=== PATIENT | male | born 1945 | race Caucasian/White ===

== ENCOUNTER 2025-06-30 14:24 | Inpatient (IN) | payer MEDICARE, SELFPAY ==
[2025-06-30] VITALS (7 sets, daily range): BP systolic 122–146; BP diastolic 58–73; PULSE 65–81; RESP 14–24; TEMP 36.9–38.8; O2SAT 95–100; BMI 26.3; BMI 25.7
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
--- NOTE | 2025-06-30 15:10 | RAD_ITS ---
PROCEDURE: SHOULDER MIN 2 VIEWS 06/30/2025 REASON FOR EXAM: PAIN/INJURY TECHNIQUE: SHOULDER MIN 2 VIEWS Laterality: Right shoulder COMPARISON: None FINDINGS: Bones: No fracture. 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 Decreased distance between the humeral head in the acromion in keeping with a rotator cuff pathology. There is widening of the right acromioclavicular joint. Soft tissues: Unremarkable Other: RAD/Shoulder min 2 Views IMPRESSION: Degenerative changes of the right shoulder as well as evidence of rotator cuff disease. Widening of the right acromioclavicular joint. Reading Location: [facility]
--- NOTE | 2025-06-30 15:20 | RAD_ITS ---
PROCEDURE: CHEST PA AND LATERAL 06/30/2025 REASON FOR EXAM: WEAKNESS, SUBACUTE CHEST TRAUMA TECHNIQUE: CHEST PA AND LATERAL COMPARISON: None FINDINGS: Hardware: EKG electrodes are seen. Heart: Heart is nonenlarged. Mediastinum: The mediastinal contour is unremarkable. Lungs: Lungs are clear. Bones: Findings suggestive of healed right 8th rib fracture. Degenerative changes of the thoracic spine. RAD/Chest PA and Lateral IMPRESSION: NO ACUTE FINDINGS. Reading Location: [id number]
[2025-06-30 15:30] LABS: Hematocrit 35.1 % (40-54); Hemoglobin 13.1 g/dL (13.0-16.5); Immature Granulocytes Count 0.050 X10^3/uL (0.0-0.0); Mean Corp Hgb Conc 37.3 g/dL (32-36); Mean Corpuscular Volume 85.8 fL (80-94); Mean Platelet Vol. 10.7 fl (6.2-12.0); NRBC Flagged by Analyzer 0 % (0-5); Platelet Count 222 K/mm3 (150-450); RBC Distribution Width CV 12.3 % (11.6-14.6); RBC Distribution Width SD 38.1 fl (35.1-43.9); Red Blood Count 4.09 M/mm3 (4.6-6.2); White Blood Count 11.4 K/mm3 (4.4-11.0)
[2025-06-30 15:46] LABS: AST(SGOT) 23 U/L (<=37); Alanine Aminotransfer ALT/SGPT 25 U/L (<=46); Albumin, Serum 4.0 g/dL (3.4-4.8); Alkaline Phosphatase 48 U/L (40-129); Anion Gap 12 (5-15); BUN 25 mg/dL (4-19); BUN/Creat Ratio 17.9 RATIO (10-20); Calcium,Total 8.4 mg/dL (7.6-11.0); Carbon Dioxide 26.7 mmol/L (21.0-32.0); Chloride 90 mmol/L (98-108); Estimated Creatinine Clearance 47.06 ml/min (50-250); Globulin 1.8 g/dL (2.2-4.2); Glucose 127 mg/dL (70-99); Potassium 3.1 mmol/L (3.3-5.1)
[2025-06-30 16:10] LABS: Alcohol, Blood (Medical)-Serum < 10.1 mg/dL (<=10.0)
[2025-06-30 16:10] LABS: Troponin T High Sensitivity 70 ng/L (<=22)
--- NOTE | 2025-06-30 16:10 | ED.RN ---
DR TOLLIVER NOTIFIED OF TROP OF 72
[2025-06-30 16:46] LABS: Mucous, Urine 0 SEEN /hpf (<or=2+)
[2025-06-30 17:44] LABS: Troponin T High Sens 2 HR 62 ng/L (<=22)
[2025-06-30 17:50] LABS: Barbiturate Urine NEGATIVE (< 200 ng/mL); Benzodiazepine Urine NEGATIVE (< 200 ng/mL); PCP Urine NEGATIVE (< 25 ng/mL); THC Urine PRESUMPTIVE POSITIVE (< 50 ng/mL)
[2025-06-30 17:57] LABS: Color, Urine Yellow (Yellow); Glucose, Dipstick Normal (Normal); Ketone-Dipstick Negative (Negative); Leukocyte Esterase-Dipstick Negative /ul (Negative); Nitrite-Dipstick Negative (Negative); Occult Blood-Urine 10 /ul (Negative); Protein-Dipstick 30 mg/dl (Negative); Specific Gravity, Urine 1.015 (1.002-1.030); Urine Bilirubin Dipstick Negative (Negative)
[2025-06-30 18:24] LABS: Red Blood Cells-Urine 0-5 SEEN /hpf (0-5); Squamous Epithelial Cells - UA 0-5 SEEN /hpf (0-5); Transitional Epithelial - Ur 0-5 SEEN /hpf (0-5)
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
--- NOTE | 2025-06-30 20:56 | CM.ED ---
Social Work SW met with patient and patients sons. Patient was not communicative, sons were able to answer questions. Sons stated that patient was staying with son Saud while in [place]. Patient was supposed to drive back to [place] on . Saud states they use [facility] in [place] for prescriptions. Son has no DME in his home. Discharge plans uncertain. Juli Johnson, BULLET LUBRICATING MACHINE OPERATOR, RACE RELATIONS PROFESSOR
[2025-06-30 21:16] LABS: Troponin T High Sens 4 HR 63 ng/L (<=22)
[2025-06-30 21:26] LABS: Magnesium 2.1 mg/dL (1.5-2.2)
--- NOTE | 2025-06-30 21:52 | CDU_ITS ---
Reason For Study Reason For Study: CVA Rt. Velocities/BP Lt. Velocities/BP Prox CCA 88.8/12.6 cm/sec. Prox CCA 87.6/10.2 cm/sec. Mid CCA 81.4/12.6 cm/sec. Mid CCA 79.0/12.6 cm/sec. Dist CCA 72.8/11.4 cm/sec. Dist CCA 74.0/11.4 cm/sec. Prox ICA 50.4/10.7 cm/sec. Prox ICA 38.1/6.9 cm/sec. Mid ICA 64.5/17.3 cm/sec. Mid ICA 61.7/16.3 cm/sec. Dist ICA 75.9/23.0 cm/sec. Dist ICA 58.1/12.3 cm/sec. Rt. ICA/CCA = 0.9. Lt. ICA/CCA = 0.8. Prox ECA 60.5/5.3 cm/sec. Prox ECA 74.0/5.3 cm/sec. Rt. Vert. 57.0/12.6 cm/sec. Lt. Vert. 41.2/8.3 cm/sec. Right Extracranial There is homogeneous, smooth atherosclerotic plaque noted in the right common carotid artery. There is intimal thickening but no significant atherosclerotic plaque noted in the right internal carotid artery. There is intimal thickening but no significant atherosclerotic plaque noted in the right external carotid artery. Antegrade flow is noted in the right vertebral artery. Left Extracranial There is homogeneous, smooth atherosclerotic plaque noted in the left common carotid artery. There is intimal thickening but no significant atherosclerotic plaque noted in the left internal carotid artery. There is intimal thickening but no significant atherosclerotic plaque noted in the left external carotid artery. Antegrade flow is noted in the left vertebral artery. Procedure Carotid Duplex 21674. This is a Carotid Duplex examination using B-mode, color flow and specral Doppler. Exam performed portable in patient room. VL/Carotid Duplex Ultrasound Interpretation Summary No significant atherosclerotic plaque or stenosis noted in the internal carotid arteries bilaterally. Flow within the vertebral arteries is antegrade bilaterally. Ordering Physician: Shauna Simental Performed By: Honey Rodriguez RVT
[2025-06-30 22:05] LABS: Procalcitonin 0.10 ng/mL (<=0.10)
--- OUTSIDE RECORDS SUMMARY | 2025-06-30 22:24 | XMS RPT_ITS | CCD ---
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 Ball Emergency Provider Care Physician, No Primary Primary Care Provider Unavailable Hola SHEA, Dr. Shauna Frank Admit Provider Hola SHEA, Dr. Shauna Frank Attending Provider Allergies Allergy Classification Reported Allergen(s) Allergy Type Date of Onset Reaction(s) Facility (1 source) Penicillins Allergy to substance 5 chest pain, sob [facility] Medications Current Medications Medication Drug Class(es) Dates Sig (Normalized) Sig (Original) aspirin 81 mg delayed release oral tablet (1 source) Platelet Aggregation Inhibitor, Nonsteroidal Anti-inflammator y Drug Start: 0 Aspirin (Adult Low Dose Aspirin) 81 mg tablet,delayed release (DR/EC) Active 81 mg PO daily 90 April 01, 2020 12:00am 24 hr dilTIAZem hydrochloride 240 mg extended release oral capsule (6 sources) Calcium Channel Veronica Start: 8 End: 1 take 1 capsule by mouth once daily Diltiazem Hcl 240 mg capsule,extended release 24 hr Active 0 .ROUTE .COMPLEX 90 November 22, 2020 11:31am take 1 capsule by mouth once daily hydroCHLOROthiazide 25 mg oral tablet (2 sources) Thiazide Diuretic Start: 5 take 1 tablet by mouth once daily Hydrochlorothiazide 25 mg tablet Active 25 mg PO DAILY June 30, 2025 12:00am Start: 12-15-2019 End: 04-01-2020 take 1 tablet by mouth once daily Hydrochlorothiazide 12.5 mg tablet Discontinued 12.5 mg PO DAILY 90 December 15, 2019 1:00am April 01, 2020 1:27pm combination Losartan HCTZ on backorder losartan potassium 50 mg oral tablet (2 sources) Angiotensin 2 Receptor Veronica Start: 06-30-2025 take 1 tablet by mouth at bedtime Losartan 50 mg tablet Active 50 mg PO AT BEDTIME June 30, 2025 12:00am Start: 12-15-2019 End: 04-01-2020 take 1 tablet by mouth once daily Losartan 50 mg tablet Discontinued 50 mg PO DAILY 90 December 15, 2019 1:00am April 01, 2020 1:27pm combination Losartan HCTZ on backorder tamsulosin hydrochloride 0.4 mg oral capsule (1 source) alpha-Adrenergic Veronica Start: 06-30-2025 take 1 capsule by mouth once daily Tamsulosin 0.4 mg capsule Active 0.4 mg PO DAILY June 30, 2025 12:00am ubidecarenone 100 mg oral capsule (1 source) Start: 06-30-2025 Coenzyme Q10 (Coq-10) 100 mg capsule Active 100 mg PO DAILY June 30, 2025 12:00am Vitamin D3-Vitamin K2 (Mk4) (K2 Plus D3) 1,000-100 unit-mcg tablet (1 source) Start: 06-30-2025 Vitamin D3-Vitamin K2 (Mk4) (K2 Plus D3) 1,000-100 unit-mcg tablet Active 1 {tbl} PO DAILY June 30, 2025 12:00am Completed/Discontinued Medications Medication Drug Class(es) Dates Sig (Normalized) Sig (Original) clopidogrel 75 mg oral tablet (3 sources) P2Y12 Platelet Inhibitor Start: 03-06-2018 End: 04-01-2020 Clopidogrel (Plavix) 75 mg tablet Discontinued 75 mg PO .COMPLEX 36 3 June 11, 2019 4:01pm April 01, 2020 1:24pm 75 mg PO ; three days a week hydroCHLOROthiazide 12.5 mg / losartan potassium 50 mg oral tablet (3 sources) Thiazide Diuretic, Angiotensin 2 Receptor Veronica Start: 05-30-2018 End: 12-15-2019 Losartan-Hydrochl orothiazide 50-12.5 mg tablet Discontinued 1 {tbl} PO daily 90 June 16, 2019 11:04am December 15, 2019 4:44pm hydroCHLOROthiazide 25 mg / valsartan 320 mg oral tablet (2 sources) Thiazide Diuretic, Angiotensin 2 Receptor Veronica Start: 03-06-2018 End: 05-30-2018 Valsartan-Hydroch lorothiazide (Diovan Hct) 320-25 mg tablet Discontinued 0.5 {tbl} PO daily 45 3 May 27, 2018 9:42am May 30, 2018 2:20pm metoprolol tartrate 25 mg oral tablet (3 sources) beta-Adrenergic Veronica Start: 03-06-2018 End: 04-01-2020 take 1 tablet by mouth once daily Metoprolol Tartrate 25 mg tablet Discontinued 25 mg PO daily 90 3 June 16, 2019 11:04am April 01, 2020 1:24pm Problems Problem Classification Problem Date Documented Da te Episodic/Chronic Acute cerebrovascular disease (2 sources) Cerebral infarction; Translations: [Cerebral infarction, unspecified] 06-30-2025 Chronic Cardiac dysrhythmias (1 source) Paroxysmal atrial fibrillation; Translations: [Paroxysmal atrial fibrillation] 04-01-2019 Chronic Conditions associated with dizziness or vertigo (1 source) Loss of equilibrium; Translations: [Dizziness and giddiness] 06-30-2025 Episodic Essential hypertension (1 source) Essential hypertension; Translations: [Essential (primary) hypertension] 03-31-2020 Chronic Heart valve disorders (1 source) Tricuspid incompetence, non-rheumatic ; Translations: [Nonrheumatic tricuspid (valve) insufficiency] 03-31-2020 Chronic Nonspecific chest pain (1 source) Atypical chest pain; Translations: [Other chest pain] 04-01-2019 Episodic Other nervous system disorders (1 source) Disorder of brain; Translations: [Encephalopathy, unspecified] 06-30-2025 Chronic Residual codes; unclassified (1 source) History of operative procedure on shoulder; Translations: [Other specified postprocedural states] 04-01-2019 Episodic Comment on above: rotator cuff repair Residual codes; unclassified (1 source) Past history of procedure; Translations: [Other specified postprocedural states] 04-01-2019 Episodic Results Test Name Value Interpretation Reference Range Facility Absolute lymphocyte countOrd ered By: Quinn Menjivar on 06-30-2025 Lymphocytes Auto (Unsp spec) [#/Vol] 2.21 10*3/uL 0.83-4.51 [facility] Absolute neutrophil countOrd ered By: Quinn Menjivar on 06-30-2025 Neutrophils (Bld) [#/Vol] 7.9 10*3/uL High 2.0-7.7 [facility] Amphetamine detection with 1 000 ng/mL as cutoffOrdered By: Quinn Menjivar on 06-30-2025 Amphetamines Screen method >1000 ng/mL Ql (U) Negative < 200 ng/mL [facility] Anion gap in Serum or Plasma Ordered By: Quinn Menjivar on 06-30-2025 Anion gap [Moles/Vol] 12 mmol/L 5-15 [facility] Automated lymphocyte count a s percentage of total leukocytesOrdered By: Quinn Menjivar on 06-30-2025 Lymphocytes/100 WBC Auto (Unsp spec) 19.5 % 19- [facility] BUN/creatinine ratioOrdered By: Quinn Menjivar on 06-30-2025 Urea nitrogen/Creatinine [Mass ratio] 17.9 mg/mg 10-20 [facility] Basophil percentageOrdered B y: Quinn Menjivar on 06-30-2025 Basophils/100 WBC (Bld) 0.4 % 0-1 [facility] Bilirubin Test strip Ql (U)O rdered By: Quinn Menjivar on 06-30-2025 Bilirubin Ql (U) Negative Negative [facility] Bilirubin, totalOrdered By: Quinn Menjivar on 06-30-2025 Bilirubin [Mass/Vol] 0.94 mg/dL 0.00-1.30 [facility] Carbon dioxide, total [Moles /volume] in Central venous bloodOrdered By: Quinn Menjivar on 06-30-2025 CO2 [Moles/Vol] 26.7 mmol/L 21.0-32.0 [facility] Chloride assayOrdered By: Litzy Menjivar on 06-30-2025 Chloride [Moles/Vol] 90 mmol/L Low 98-108 [facility] Eosinophil percentageOrdered By: Quinn Menjivar on 06-30-2025 Eosinophils/100 WBC (Bld) 0.3 % 0-5 [facility] Erythrocyte distribution wid th ratioOrdered By: Quinn Menjivar on 06-30-2025 Erythrocyte distribution width (RBC) [Ratio] 12.3 % 11.6-14.6 [facility] Erythrocyte distribution wid th standard deviationOrdered By: Quinn Menjivar on 06-30-2025 Erythrocyte distribution width (RBC) [Ratio] 38.1 fl 35.1-43.9 [facility] Glomerular filtration rate ( GFR) estimation/1.73 sq m using serum, plasma, or whole bOrdered By: Quinn Mejnivar on 06-30-2025 GFR/1.73 sq M.predicted among non-blacks MDRD (S/P/Bld) [Vol rate/Area] 51 mL/min/{1.73_m2} Low >60 [facility] Comment on above: mL/min/1.73m2 CKD-EP I Creatinine Equation (2020) Hematocrit Auto (Bld) [Volum e fraction]Ordered By: Quinn Menjivar on 06-30-2025 Hematocrit (Bld) [Volume fraction] 35.1 % Low 40-54 [facility] Hemoglobin measurementOrdere d By: Quinn Menjivar on 06-30-2025 Hemoglobin (Bld) [Mass/Vol] 13.1 g/dL 13.0-16.5 [facility] Immature granulocytes/100 WB C Auto (Bld)Ordered By: Quinn Menjivar on 06-30-2025 Immature granulocytes/100 WBC (Bld) 0.400 % 0.0-0.9 [facility] Comment on above: IG% - Immature Granu locytes (promyelocytes, myelocytes and metamyelocytes) > 1% indicates that a LEFT SHIFT is Present. Ketones Test strip Ql (U)Ord ered By: Quinn Menjivar on 06-30-2025 Ketones Ql (U) Negative Negative [facility] Laboratory - Chemistry and C hemistry - challengeOrdered By: Quinn Menjivar on 06-30-2025 AST [Catalytic activity/Vol] 23 U/L <38 [facility] MCV (mean corpuscular volume ) determinationOrdered By: Quinn Menjivar on 06-30-2025 MCV (RBC) [Entitic vol] 85.8 fL 80-94 [facility] Magnesium measurement (mass/ volume)Ordered By: Shauna Simental on 06-30-2025 Magnesium (Unsp spec) [Mass/Vol] 2.1 mg/dL 1.5-2.2 [facility] Mean corpuscular hemoglobin (MCH) determinationOrdered By: Qiunn Menjivar on 06-30-2025 MCH (RBC) [Entitic mass] 32.0 pg 27.0-32.0 [facility] Mean corpuscular hemoglobin concentration (MCHC) determinationOrdered By: Quinn Menjivar on 06-30-2025 MCHC (RBC) [Mass/Vol] 37.3 g/dL High 32-36 [facility] Mean platelet volume determi nationOrdered By: Quinn Menjivar on 06-30-2025 Platelet mean volume (Bld) [Entitic vol] 10.7 fL 6.2-12.0 [facility] Microscopic analysis of urin e for red blood cells (RBC)Ordered By: Quinn Menjivar on 06-30-2025 Microscopic analysis of urine for red blood cells (RBC) 0-5 SEEN /hpf 0-5 [facility] Monocyte percentageOrdered B y: Quinn Menjivar on 06-30-2025 Monocytes/100 WBC (Bld) 10.0 % 0-10 [facility] Mucus LM Ql (Urine sed)Order ed By: Quinn Menjivar on 06-30-2025 Mucus Ql (Urine sed) 0 SEEN /hpf [facility] Neutrophil percentageOrdered By: Quinn Menjivar on 06-30-2025 Neutrophils/100 WBC (Bld) 69.4 % 47-70 [facility] Nitrite Test strip Ql (U)Ord ered By: Quinn Menjivar on 06-30-2025 Nitrite Ql (U) Negative Negative [facility] No Panel InformationOrdered By: Quinn Menjivar on 06-30-2025 Urine Buprenorphine Qualitative Negative < 200 ng/mL [facility] Urine Oxycodone Screen Negative < 100 ng/mL [facility] Nucleated red blood cell per centageOrdered By: Quinn Menjivar on 06-30-2025 Nucleated RBC/100 WBC (Bld) [Ratio] 0 % 0-5 [facility] Platelet countOrdered By: Litzy Menjivar on 06-30-2025 Platelets (Bld) [#/Vol] 222 10*3/uL 150-450 [facility] Potassium measurement (mass/ volume)Ordered By: Quinn Menjivar on 06-30-2025 Potassium (Unsp spec) [Mass/Vol] 3.1 mmol/L Low 3.3-5.1 [facility] Protein Test strip Ql (U)Ord ered By: Quinn Menjivar on 06-30-2025 Protein Ql (U) 30 mg/dl High Negative [facility] Quantitative urine opiates m easurementOrdered By: Quinn Menjivar on 06-30-2025 Opiates Ql (U) Negative < 300 ng/mL [facility] RBC Auto (Bld) [#/Vol]Ordere d By: Quinn Menjivar on 06-30-2025 RBC (Bld) [#/Vol] 4.09 10*6/uL Low 4.6-6.2 [facility] Screening urine fentanyl pascale surementOrdered By: Quinn Menjivar on 06-30-2025 fentaNYL Screen Ql (U) Negative [facility] Comment on above: CONFIRMATORY TESTING FOR ALL POSITIVE URINE DRUG SCREENRESULTS WILL ONLY BE SENT OUT UPON PHYSICIAN ORDER. [employer] Urine Drug Screen methods provide only preliminaryanalytical test results. A more specific alternate chemicalmethod must be used in order to obtain a confirmedanalytical result. Gas chromatography/mass spectrometery(GC/MS) is the preferred confirmatory method. Clinicalconsideration and professional judgement should be appliedto any drug of abuse test result, particularly whenpreliminary positive results are used. Urine TCA testing must be ordered separately. Use test mnemonic: IACA Serum creatinine measurement (mass/volume)Ordered By: Quinn Menjivar on 06-30-2025 Creatinine [Mass/Vol] 1.42 mg/dL High 0.70-1.20 [facility] Serum globulin measurementOr dered By: Quinn Menjivar on 06-30-2025 Globulin (S) [Mass/Vol] 1.8 g/dL Low 2.2-4.2 [facility] Serum glucose measurement (m ass/volume)Ordered By: Quinn Menjivar on 06-30-2025 Glucose [Mass/Vol] 127 mg/dL High 70-99 [facility] Serum or plasma alanine keith otransferase (ALT) measurementOrdered By: Quinn Menjivar on 06-30-2025 ALT [Catalytic activity/Vol] 25 U/L <47 [facility] Serum or plasma albumin clau urement (mass/volume)Ordered By: Quinn Menjivar on 06-30-2025 Albumin [Mass/Vol] 4.0 g/dL 3.4-4.8 [facility] Serum or plasma albumin/glob ulin mass ratioOrdered By: Quinn Menjivar on 06-30-2025 Albumin/Globulin [Mass ratio] 2.2 {ratio} 0.9-2.4 [facility] Serum or plasma alkaline lico sphatase measurementOrdered By: Quinn Menjivar on 06-30-2025 ALP [Catalytic activity/Vol] 48 U/L 40-129 [facility] Serum or plasma calcium clau urement (mass/volume)Ordered By: Quinn Menjivar on 06-30-2025 Calcium [Mass/Vol] 8.4 mg/dL 7.6-11.0 [facility] Serum or plasma ethanol clau urement (mass/volume)Ordered By: Quinn Menjivar on 06-30-2025 Ethanol [Mass/Vol] mg/dL <10.1 [facility] Comment on above: This test is for med ical purposes only. The legal definition of intoxication varies according to local law. Serum or plasma urea nitroge n measurement (mass/volume)Ordered By: Quinn Menjivar on 06-30-2025 Urea nitrogen [Mass/Vol] 25 mg/dL High 4-19 [facility] Sodium levelOrdered By: Rodrick Menjivar on 06-30-2025 Sodium [Moles/Vol] 128 mmol/L Low 133-145 [facility] Squamous epithelial cells de tection in urine sediment by light microscopyOrdered By: Quinn Menjivar on 06-30-2025 Epithelial cells.squamous LM Ql (Urine sed) 0-5 SEEN /hpf 0-5 [facility] Total proteinOrdered By: Kali Menjivar on 06-30-2025 Protein [Mass/Vol] 5.8 g/dL Low 5.9-8.4 [facility] Transitional cells detection in urine sediment by light microscopyOrdered By: Quinn Menjivar on 06-30-2025 Transitional cells LM Ql (Urine sed) 0-5 SEEN /hpf 0-5 [facility] Troponin T.cardiac [Mass/vol ume] in Serum or Plasma by High sensitivity methodOrdered By: Quinn Menjivar on 06-30-2025 Troponin T.cardiac High sensitivity method [Mass/Vol] 63 ng/L High <22 [facility] Comment on above: Critical Result(s) C alled at: 2116 by: ANAIS POOL READ Results read back by same. Troponin T.cardiac High sensitivity method [Mass/Vol] 62 ng/L High <22 [facility] Comment on above: Critical Result(s) C alled at: 1743 by: ANAIS BELL TO FELIPE AVITIA Results read back by same. Troponin T.cardiac High sensitivity method [Mass/Vol] 70 ng/L High <22 [facility] Comment on above: Critical Result(s) C alled at: 1610 by: ANAIS BELL TO BERNADINE PEREZ Results read back by same. Urine benzodiazepine levelOr dered By: Quinn Menjivar on 06-30-2025 Benzodiazepines Ql (U) Negative < 200 ng/mL [facility] Urine clarityOrdered By: Kali Menjivar on 06-30-2025 Clarity (U) Clear Clear [facility] Urine cocaine levelOrdered B y: Quinn Menjivar on 06-30-2025 Cocaine Ql (U) Negative < 300 ng/mL [facility] Urine color determinationOrd ered By: Quinn Menjivar on 06-30-2025 Color (U) Yellow Yellow [facility] Urine unjur-5-iofcvgdfudzker abinol (THC) measurementOrdered By: Quinn Menjivar on 06-30-2025 Cannabinoids Screen Ql (U) Positive < 50 ng/mL [facility] Comment on above: If confirmation test ing is needed, a separate order will be required to send out testing to the reference laboratory. Urine glucose detectionOrder ed By: Quinn Menjivar on 06-30-2025 Glucose Ql (U) Normal mg/dl Normal [facility] Urine leukocyte esterase det ection by dipstickOrdered By: Quinn Menjivar on 06-30-2025 Leukocyte esterase Test strip Ql (U) Negative Negative [facility] Urine pHOrdered By: Quinn Menjivar on 06-30-2025 pH (U) 6.0 [pH] 5.0 - 8.0 [facility] Urine phencyclidine (PCP) de tectionOrdered By: Quinn Menjivar on 06-30-2025 Phencyclidine Ql (U) Negative < 25 ng/mL [facility] Urine sediment bacteria coun t by microscopy (number/high power field)Ordered By: Quinn Menjivar on 06-30-2025 Bacteria LM.HPF (Urine sed) [#/Area] RARE /hpf None Seen [facility] Urine specific gravity measu rementOrdered By: Quinn Menjivar on 06-30-2025 Specific gravity (U) [Rel density] 1.015 1.002-1.03 0 [facility] Urine urobilinogen measureme ntOrdered By: Quinn Menjivar on 06-30-2025 Urobilinogen Ql (U) Normal mg/dl Normal [facility] White blood cell (WBC) count Ordered By: Quinn Menjivar on 06-30-2025 WBC (Bld) [#/Vol] 11.4 10*3/uL High 4.4-11.0 [facility] White blood cell countOrdere d By: Quinn Menjivar on 06-30-2025 White blood cell count 0-5 SEEN /hpf 0-5 [facility] XR CHEST 2 VIEWSon 0 XR CHEST 2 VIEWS ORIGINAL Examination: Chest x-ray Clinical:LEFT axillary reactive lymphadenopathy. Comparison:None Technique:PA and lateral Support devices:None Cardiomediastinal:Normal in size. Lungs: Mild pulmonary hyperinflation possibly reflecting COPD. The lungs are clear. Pneumothorax:None Osseous:Multilevel degenerative changes of the dorsal spine. Chronic appearing height loss involves the approximate T6-T8 levels. Impression: 1. No acute pulmonary disease. 2. Mild pulmonary hyperinflation. 3. Chronic. Height loss involving the approximate T6-T8 levels. Interpreted By: Bruce Araiza MD Preliminary Report By: Bruce Araiza MD Electronically Signed By: Bruce Araiza MD Dictated Date: 04/14/2020 3:20:23 PM Prelim Date: 04/14/2020 3:20:23 PM Sign Date: 04/14/2020 3:24:42 PM Ordering Provider:Bruce Huang [facility] ([place]) Cardiology Visit Reporton Cardiology Visit Report [facility] [place] [address] OFFICE VISIT Date of Service: 04/01/20 MR#: [id number] Acct: [id number] Name: ISAAC SCHILLING Rep #: [id number] : 1945 Provider: Dr. Bahman Montes De Oca MD Age/Sex: 74/M Location[place] [facility] [place] Status: Signed HPI [facility] History of Present Illness Details: ISAAC SCHILLING, is a 74 M who presents to the office today for a cardiovascular outpatient follow-up. He has a history of paroxysmal atrial fibrillation diagnosed in 1998 and hypertension. Pt. denies chest, arm, jaw, or neck discomfort. His exercise tolerance is stable. Pt. denies symptoms of CHF, palpitations, lightheadedness, dizziness, near syncope, or syncopal episodes. Pt. denies claudication issues. Pt. denies orthopnea, PND, fever, chills, blood in urine, blood in stool, myalgia, or unexplainable fatigue. He has not had any episodes of atrial fibrillation. Tells me that he continues to do well and especially since his been on his plant-based diet he has been feeling quite good. His last echocardiogram had demonstrated an ejection fraction of 55%. Intake Vital Signs 04/01/20 Height 6 ft 1 in 04/01/20 Weight: 170 lb 04/01/20 BMI 22.4 04/01/20 BP 123/58 H 04/01/20 Pulse 60 04/01/20 Comment BP and HR per patient's home monitoring device Intake Visit Reasons: 1 Y FU (PHONE) Allergies Penicillins Allergy (Verified 04/01/20 13:20) chest pain, sob Medications diltiazem HCl 240 mg capsule,24 hr,extended release See Rx Instructions .ROUTE .COMPLEX #90 capsule 11/11/19 [Rx Confirmed 04/01/20] aspirin 81 mg tablet,delayed release 81 mg PO QDAY #90 tab 04/01/20 [Rx Confirmed 04/01/20] Ejection fraction %: 55 to 59 [facility] Medical History Paroxysmal atrial fibrillation (Chronic) Essential (primary) hypertension (Chronic) Malignant melanoma (Resolved) Transient ischemic attack (Chronic) Non-rheumatic tricuspid valve insufficiency (Inactive) Surgical History H/O shoulder surgery (Resolved) History of esophagogastroduodenoscopy (EGD) (Resolved) History of tonsillectomy and adenoidectomy (Resolved) Hx of appendectomy (Resolved) colonoscopy (Resolved) Family History Father CHF (congestive heart failure) Mother No problems noted. Brother Diabetes Social History (Updated 04/01/20 @ 13:[address] Bahman Montes De Oca MD) Smoking Status: Never smoker alcohol intake: current alcohol intake frequency: holidays/special occasions only substance use type: does not use caffeine: Yes Type: coffee Number of servings: 1 what type of physical activity do you participate in: walking frequency: daily seatbelt use: always do you feel safe at home: Yes ROS Const Const: Positive for weight loss (Diet change plant base) and other (Exercising without difficulty); negative for fatigue, weakness, headache(s), frequent falls, difficulty sleeping or excessive sweating Eyes Eyes: Negative for loss of peripheral vision, transient loss of vision, blurry vision, double vision or tunnel vision ENT ENT: Negative for headache(s), dizziness, Nosebleed/epistaxis or balance problems Cardio Chest Pain: No Palpitations: No Edema: None Muscle aches with walking: None Resp Respiratory: Negative for SOB with activity, SOB at rest, SOB orthopnea SOB lying down, Cough or paroxysmal nocturnal dyspnea GI GI: Negative nausea, vomiting, heartburn or black,tarry stools : Negative for hematuria Musc Musc: Negative for muscle aches/ myalgia, muscle weakness, joint pain or balance problems Skin Skin: Negative non-healing lesions, rash or unusual bruising Neuro Neuro: Negative for dizziness, lightheadedness, near syncope, syncope, orthostatic symptoms, frequent falls, headache(s), weakness, blurry vision, double vision or lack of coordination Eduard Hematologic/Lymphatic: Negative for easy bleeding or easy bruising Endo Endo: Negative for fatigue, excessive sweating or increased thirst/drinking Psych Psych: Negative for anxiety or depression Allergy Allergy/Immunology: Negative for hives, Negative for rash Cardiology Exam Const Physical exam was not completed because this was a phone visit. Assessment Plan 1. Essential (primary) hypertension I10 Plan His blood pressure is much better he has been able to get off his losartan and hydrochlorothiazide and wants to know if he can come off the diltiazem as well. He has lost approximately 15 pounds. I told him that we can wean off the diltiazem and see how he does. 2. Paroxysmal atrial fibrillation I48.0 Plan He has not had any paroxysms of the above for many years. I have asked him to resume the aspirin and to wean off of the diltiazem. You do remember he does have preserved ejection fraction. We will see how he does over the next few months. He should keep us apprised of any further developments. Plan Detail Other Medications New: aspirin (Adult Low Dose Aspirin) 81 mg PO QDAY 90 tabs 3RF Additional Comments This is a telehealth visit in lieu of in person visit due to nationwide COVID ??? 19 emergency. Verbal consent was obtained from the patient prior to initiation of this visit. Live video connection/telephone call between my location and the patient???s location was used for this visit. Patients name and date of were confirmed verbally. I spent a total of 11 minutes of time during this real-time, interactive virtual clinical encounter, which was conducted using telephone/live video technology. Greater than 50% of the time was devoted to counseling and coordinating care including the review of records, pertinent lab data and studies, discussing diagnostic evaluation and work up, planned therapeutic interventions and future disposition of care. All questions from patient were answered. Follow Up 1 Year (health care assistant) Coding Level of Care Code Attention Business Process Specialist Diagnoses Essential (primary) hypertension I10 Paroxysmal atrial fibrillation I48.0 Time Spent (min) 11 Comment 94956 Coding Level of Care Code Attention Juan J Diagnoses Essential (primary) hypertension I10 Paroxysmal atrial fibrillation I48.0 Time Spent (min) 11 Comment 05153 Supplemental Info Supplemental Information Diagnostics Electrocardiogram 03/06/18 04/01/20 1354 Date Bahman Collins Signature: Date (if applicable) CC: Dr. Bruce Barrientos, DO [facility] .GFRon 08-28-2019 GFR Non- 73 ml/min/1.73sqm Normal [facility] [facility] [place] Comment on above: Result Comment: GFR Population mean for , Non- Americans Ages 20-29 = 116 mL/min/1.73 sq.m. Ages 30-39 = 107 mL/min/1.73 sq.m. Ages 40-49 = 99 mL/min/1.73 sq.m. Ages 50-59 = 93 mL/min/1.73 sq.m. Ages 60-69 = 85 mL/min/1.73 sq.m. Ages 70+ = 75 mL/min/1.73 sq.m. Chronic Kidney Disease: Less than 60 mL/min/1.73 square meters End Stage Renal Disease: Less than 15 mL/min/1.73 square meters Performed By: #### P SA, LIPID, CMP, GFR #### [address] [address] GFR 88 ml/min/1.73sqm Normal [facility] ([place]) Comment on above: Result Comment: GFR Population mean for , Non- Americans Ages 20-29 = 116 mL/min/1.73 sq.m. Ages 30-39 = 107 mL/min/1.73 sq.m. Ages 40-49 = 99 mL/min/1.73 sq.m. Ages 50-59 = 93 mL/min/1.73 sq.m. Ages 60-69 = 85 mL/min/1.73 sq.m. Ages 70+ = 75 mL/min/1.73 sq.m. Chronic Kidney Disease: Less than 60 mL/min/1.73 square meters End Stage Renal Disease: Less than 15 mL/min/1.73 square meters Performed By: #### P SA, LIPID, CMP, GFR #### [address] [address] CMPon 08-28-2019 Albumin [Mass/Vol] 4.2 G/dL Normal 3.4-4.8 [facility]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 No June 30, 2025 2:37pm Chief Complaint and Reason for Visit Chief Complaint Admit Date CVA, ELEVATED TROP June 30, 2025 8: 40pm Reason for Visit Admit Date Cerebral infarct June 30, 2025 8: 40pm Additional Source Comments (unrecognized sect ion and content) No Status Records FoundNo Status Records Found INFORMATION SOURCE (unrecogn ized section and content) DATE CREATED AUTHOR 04/01/2020 [facility] DATE CREATED AUTHOR AUTHOR'S TASHA ATLISA 06/04/2020 [facility] ([place]) Care Teams (unrecognized sec tion and content) Team Status: Active Member Role/Relationship Status Dates No Primary Care Physician Primary Care Provider Active Team Status: Active Member Role/Relationship Status Dates Dr. Quinn Menjivar MD Emergency Provider Active Start: June 30, 2025 No Primary Care Physician Primary Care Provider Active Start: June 30, 2025 Dr. Shauna Simental MD Admit Provider Active St art: June 30, 2025 Dr. Shauna Simental MD Attending Provider Active Start: June 30, 2025 Dr. Shauna Simental MD Other Provider Active St art: June 30, 2025 Goals (unrecognized section and content) Goals may be documented in a n alternate section FOR RECORDS PERTAINING TO PATIENTS WHO ARE OR HAVE BEEN ENROLLED IN A CHEMICAL DEPENDENCY/SUBSTANCEABUSE PROGRAM, SOME INFORMATION MAY BE OMITTED. This clinical summary was aggregated from multiple sources. Caution should be exercised in using it in the provision of clinical care. This summary normalizes information from multiple sources, and as a consequence, information in this document may materially change the coding, format and clinical context of patient data. In addition, data may be omitted in some cases. CLINICAL DECISIONS SHOULD BE BASED ON THE PRIMARY CLINICAL RECORDS. [facility]. provides no warranty or guarantee of the accuracy or completeness of information in this document.
[2025-06-30] MEDS: Potassium Chloride Oral Tablet 20 MEQ 40 MEQ PO (22:39)
[2025-06-30] MEDS: 0.9% Normal Saline (1000mL) 1,000 ML 100 ML IV (22:42)
[2025-07-01] VITALS (7 sets, daily range): BP systolic 117–157; BP diastolic 64–80; PULSE 50–92; RESP 14–18; TEMP 36.4–39.2; O2SAT 94–99; BMI 25.7
[2025-07-01 05:37] LABS: Hematocrit 34.1 % (40-54); Hemoglobin 12.3 g/dL (13.0-16.5); Immature Granulocytes Count 0.050 X10^3/uL (0.0-0.0); Mean Corp Hgb Conc 36.1 g/dL (32-36); Mean Corpuscular Volume 87.9 fL (80-94); Mean Platelet Vol. 10.6 fl (6.2-12.0); NRBC Flagged by Analyzer 0 % (0-5); Platelet Count 166 K/mm3 (150-450); RBC Distribution Width CV 12.6 % (11.6-14.6); RBC Distribution Width SD 39.7 fl (35.1-43.9); Red Blood Count 3.88 M/mm3 (4.6-6.2); White Blood Count 7.1 K/mm3 (4.4-11.0)
[2025-07-01 06:06] LABS: AST(SGOT) 18 U/L (<=37); Alanine Aminotransfer ALT/SGPT 21 U/L (<=46); Albumin, Serum 3.6 g/dL (3.4-4.8); Alkaline Phosphatase 44 U/L (40-129); Anion Gap 11 (5-15); BUN 18 mg/dL (4-19); BUN/Creat Ratio 15.0 RATIO (10-20); Calcium,Total 8.3 mg/dL (7.6-11.0); Carbon Dioxide 26.2 mmol/L (21.0-32.0); Chloride 93 mmol/L (98-108); Cholesterol 124 mg/dL (<=200); Estimated Creatinine Clearance 55.22 ml/min (50-250); Globulin 1.9 g/dL (2.2-4.2); Glucose 108 mg/dL (70-99); Low Density Lipoprotein Calc. 74 mg/dL; Potassium 3.1 mmol/L (3.3-5.1); Triglycerides 58 mg/dL; Very Low Density Lipoprotein 12 mg/dL (5-40); cholesterol:hdl ratio screen 3.27
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
--- NOTE | 2025-07-01 08:40 | MRI_ITS ---
PROCEDURE: MRA HEAD ONLY WITHOUT CONTRAST 07/01/2025 REASON FOR EXAM: CVA Right temporal lobe infarction seen on MRI brain. COMPARISON: Brain MRI the same date. TECHNIQUE: MRA HEAD ONLY WITHOUT CONTRAST Multiplanar multisequential imaging was performed without IV contrast administration. MRI/MRA Head ONLY without Contrast IMPRESSION: Symmetric appearance of the intracranial arteries is seen, with no area of sten osis or obstruction identified. No significant atherosclerotic changes are appreciated in visualized areas. Reading Location: [place] [id number]
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
--- NOTE | 2025-07-01 11:04 | CASEMGMT ---
Tertiary Facilities In-network with patient's insurance: Baldo Torrez, Enriqueta Harvey [facility], [facility], , Yadiel Nicholson, [facility].
[2025-07-01] MEDS: Aspirin E.C. 81 MG Tablet PO (11:30)
[2025-07-01] MEDS: Potassium Chloride Oral Tablet 20 MEQ 40 MEQ PO (11:30)
[2025-07-01] MEDS: WATER IV ×2 (11:35→21:11)
[2025-07-01] MEDS: DEXTROSE 5% IV ×2 (11:35→21:11)
[2025-07-01] MEDS: ACYCLOVIR IV ×2 (11:35→21:11)
--- NOTE | 2025-07-01 12:42 | CASEMGMT ---
Social Work- SW called into room, as pt will be transferring facilities. PT wishes to complete HCPOA, as is in [place]. Pt wishes to make sons HCPOA. SW completed document and placed copy on chart, provided sons with copies, and provided original to pt. Pt reports no other needs at this time. VINCENZO Bhagat
--- NOTE | 2025-07-01 14:15 | RAD_ITS ---
PROCEDURE: DX LUMBAR PUNCTURE W/IMG GUIDE 07/01/2025 REASON FOR EXAM: Confusion, altered mental status, dizziness. Concern for infection. TECHNIQUE: DX LUMBAR PUNCTURE with fluoroscopic guidance. Fluoroscopy time: 3 seconds. Dose: 11.4 mGy. COMPARISON: None. FINDINGS: Procedure: Following informed consent, and using standard sterile technique, a fluoroscopic guided lumbar puncture was performed via a left posterior oblique approach. 2% lidocaine local anesthesia was followed by placement of a 20 gauge 3-1/2 inch spinal needle into the spinal canal in the L2 level. Initially, clear fluid was obtained, but contamination with blood than presented itself. A total of 11 mL CSF was successfully removed. No complication was otherwise noted, in the patient left the department in good condition without significant complaint. RAD/Dx Lumbar Puncture w/IMG Guide IMPRESSION: Successful fluoroscopically guided lumbar puncture. Laboratory results pending . Reading Location: [place] [id number]
[2025-07-01] MEDS: Lidocaine 2% (5ml sdv) 5 ML VIAL.MPF INFILT (14:30)
--- NOTE | 2025-07-01 14:58 | CYSPIN_PTH ---
PATIENT: ISAAC SCHILLING LOC: [facility] U#:[id number] AGE/SX: 80/M ROOM: [facility] RE06/30/[address]: Dr. Hilton Woodard MD : 1945 BED: 1 DIS: 07/02/2025 SPEC #: [id number] RECD: 07/02/25 07:39 STATUS: RASHAD REQ #: [id number] NURA: 07/01/25 14:[address]: Hilton Woodard DEPT: CYTOLOGY RECD BY: Claire Parker ENTERED: 07/02/25 07:39 SP TYPE: CYSPIN [place] OTHR DR: MD Dr. Denis Zhao MD Archana Hinduja, MD Dr. Allison Jordan, DO Dr. Autumn L White, MD Dr. Alicia Zha, MD Dr. Deepak Gulati, MD Dr. Hera Kamdar, MD Dr. Jan Bittar, MD Dr. James Burke, MD Dr. Jorge Morales, MD Margaret Beigel, MD Dr. Matthew Gusler, MD Dr. Maryam Mian, MD Dr. Mohamed Ridha, MD Dr. Mhd Ezzat Zaghlouleh, MD Dr. Peter Robinson, MD Dr. Rami Ibrahim, MD Dr. Sushil Lakhani, MD Dr. Vivien Lee, MD Yousef Hannawi, MD No Primary Care Phys Tissues: Cerebrospinal Fluid Procedures: Pap Stain (control) Special Stain Group II Cytospin Fluid HEADER OPERATION: Not noted PRE-OP DIAGNOSIS: Cerebral infarction, unspecified TISSUE SUBMITTED: A- Cerebrospinal fluid for cytology DIAGNOSIS CYTOLOGY A. Cerebrospinal fluid (cytospin): - No malignant cells identified. - Blood is present. CYTOLOGY STUDY Slides are reviewed. CYTOLOGY GROSS A. Received is 1 ml of red-bloody fluid labeled with the patient's name and and designated per the requisition as Cerebrospinal fluid. Submitted for cytology preparation. Mr 07/02/2025 CPT: 38145
[2025-07-01 15:18] LABS: Cytology, Body Fluid / CSF SEE PATHOLOGY REPORT
--- NOTE | 2025-07-01 15:42 | CHAPLAIN ---
Type of Pastoral Visit _x__ Initial Visit ___ Follow-up Visit ___ On-call Visit ___ General Patient Visit ___ Spiritual Assessment ___ Family Conference ___ Bereavement ___ Rapid Response ___ Code Blue ___ Other (describe below) Pastoral Care Referral From _x__ Patient _x__ Family ___ Nurse ___ Physician ___ Dry Clipper Tender ___ Homemaking Rehabilitation Consultant ___ Other (describe below) Sacrament/Intervention _x__ Active listening ___ Anointing ___ Adventist ___ Bereavement ___ Communion ___ Honey exploration ___ ___ Life review _x__ Prayer ___ Reconciliation ___ Sacrament of Sick _x__ Supportive presence ___ Wedding ___ Other (describe below) Pastoral Comments patient was just returned from testing to his room; two family members are present there; pt is awake but slow to respond to any questions or comments; family gives some details about recent health changes to pt; family is concerned due to changes that have occurred and very little is known about why; patient and family are given opportunity to express questions or concerns; pt and family offered prayer and pt agrees; will follow as desired
[2025-07-01] MEDS: 0.9% Normal Saline (1000mL) 1,000 ML 100 ML IV (15:47)
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
[2025-07-01] MEDS: Potassium Chloride Oral Tablet 20 MEQ PO (16:57)
[2025-07-01 17:12] LABS: Glucose Spinal Fluid 73 mg/dL (40-75); Protein Spinal Fluid 166.0 mg/dL (15.0-45.0)
[2025-07-01 17:19] LABS: Body Fluid Mononuclear WBC # 0.243 10^3/uL; Body Fluid Mononuclear WBC % 89.3 %; Body Fluid Polynuclear WBC # 0.029 10^3/uL; Body Fluid Polynuclear WBC % 10.7 %; RBC Count, Spinal Fluid 0.02800 10^6/uL (0.0000-0.0000); Total Cell Count CSF 0.278 10^3/uL; White Count, CSF 0.272 10^3/uL (0.000-0.005)
[2025-07-01] MEDS: Vancomycin HCl 2,000 MG in 0.9% Normal Saline (500mL Bag) 500 ML 250 MG IV (18:36)
[2025-07-01 18:42] LABS: Auto B Fluid Analyzer BKGD Ct COUNTS W/IN LIMITS (W/IN LIMITS)
[2025-07-01 18:43] LABS: Tested Tube # 4
[2025-07-01 18:44] LABS: Appearance CSF (character) TURBID (Clear); CSF Color RED (Colorless)
--- NOTE | 2025-07-01 19:45 | PCM.RX.CS ---
Consult Antibiotic Management Pharmacy has been consulted to manage selected antibiotic: Vancomycin Type of Intervention Type of Consult: New Suspected Infection Suspected Infection: Meningitis Labs Labs: Sodium 131 mmol/L (133-145) L 07/01/25 04:48 Potassium 3.1 mmol/L (3.3-5.1) L 07/01/25 04:48 Chloride 93 mmol/L (98-108) L 07/01/25 04:48 Carbon Dioxide 26.2 mmol/L (21.0-32.0) 07/01/25 04:48 Anion Gap 11 (5-15) 07/01/25 04:48 BUN 18 mg/dL (4-19) 07/01/25 04:48 Creatinine 1.21 mg/dL (0.70-1.20) H 07/01/25 04:48 Est GFR (MDRD) Non-Af 61 (>60) 07/01/25 04:48 BUN/Creatinine Ratio 15.0 RATIO (10-20) 07/01/25 04:48 Glucose 108 mg/dL (70-99) H 07/01/25 04:48 Microbiology Microbiology: Microbiology 07/01/25 14:33 Csf, Spinal Fluid Gram Stain - Preliminary 06/30/25 23:35 Mucosa - Nasopharyngeal Coronavirus COVID-19 PCR - Final 06/30/25 23:35 Mucosa - Nasopharyngeal Respiratory Panel (PCR) - Final Goal Trough Goal Trough: 15-20 mcg/mL Pharmacy Plan for Drug Dosing Pharmacy Plan for Drug Dosing: NEW IV VANCOMYCIN Consulting Physician: Dr. Woodard Indication: Meningitis R/O Goal Trough: 15-20 SrCr: 1.21 CrCl: 55 mL/min Comments: patient had loading dose of 2000mg x1 ordered and administered 07/01 @1836 Vancomycin Dose: 750mg IV Q12hr to start 07/02/25 @0630 Pending Level: 07/03/25 @0600, prior to 4th total dose of vancomycin per protocol Pharmacy Service will continue to monitor and adjust dosing as required.
[2025-07-01 21:51] LABS: Neutrophils,CSF 12 % (0 - 6)
--- NOTE | 2025-07-01 21:52 | MRI_ITS ---
PROCEDURE: BRAIN W/WO CONTRAST 07/01/2025 REASON FOR EXAM: CVA TECHNIQUE: BRAIN W/WO CONTRAST Multiplanar and multisequence images were obtained. CONTRAST: Clariscan VOLUME: 18 mL intravenous. COMPARISON: Head CT 06/30/2025. FINDINGS: Brain: A large right temporal infarct is seen, likely subacute given the variable diffusion restriction. Relative sparing of the inferolateral aspect of the temporal lobe noted. No mass effect or midline shift is seen. No extra-axial fluid collection is noted. Mild bilateral cerebral white matter changes are consistent with chronic ischemic changes of small-vessel disease. No orbital pathology is seen. Ventricles: Normal. Sinuses: Probable small air-fluid level of the right maxillary sinus. Mild mucosal thickening is seen of the bilateral ethmoid air cells. The remaining paranasal sinuses appear clear. Mastoids: Partial opacification of bilateral mastoid air cells. No air-fluid level is identified Other: Postcontrast images demonstrate no significant abnormal enhancement. MRI/Brain W/WO Contrast IMPRESSION: Large right temporal lobe infarct, probably subacute given the variable degree of diffusion restriction present. Paranasal sinus disease as described. Reading Location: [place] [id number]
[2025-07-01 21:55] LABS: Body Fluid QC Type(s) BF1Q
[2025-07-01] MEDS: Ceftriaxone 2 GM in 0.9% Normal Saline (50mL MB+) 50 ML IV (22:22)
[2025-07-02 02:00] VITALS: BP 142/67; PULSE 76; RESP 16; TEMP 37.9; O2SAT 97
[2025-07-02 04:15] VITALS: BMI 25.8
[2025-07-02] MEDS: 0.9% Normal Saline (1000mL) 1,000 ML 100 ML IV ×2 (04:15→15:22)
[2025-07-02] MEDS: WATER IV ×2 (05:13→14:17)
[2025-07-02] MEDS: ACYCLOVIR IV ×2 (05:13→14:17)
[2025-07-02] MEDS: DEXTROSE 5% IV ×2 (05:13→14:17)
[2025-07-02 06:00] VITALS: BP 136/65; PULSE 71; RESP 16; TEMP 37.2; O2SAT 96
[2025-07-02] MEDS: Vancomycin HCl 750 MG in 0.9% Normal Saline (250mL Bag) 250 ML 250 MG IV (06:22)
[2025-07-02 09:06] VITALS: BP 123/92; PULSE 71; RESP 14; TEMP 37.3; O2SAT 94
[2025-07-02] MEDS: Ceftriaxone 2 GM in 0.9% Normal Saline (50mL MB+) 50 ML IV (09:08)
[2025-07-02] MEDS: Aspirin E.C. 81 MG Tablet PO (09:08)
[2025-07-02] MEDS: Potassium Chloride Oral Tablet 20 MEQ PO ×2 (09:09→17:20)
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
[2025-07-02 14:16] VITALS: BP 144/117; PULSE 80; RESP 16; TEMP 37.2; O2SAT 96
--- NOTE | 2025-07-02 16:52 | NURSING ---
report called to Inidra at [facility] F67
[2025-07-02 17:00] VITALS: BMI 25.8
[2025-07-02 18:00] VITALS: BP 132/72; PULSE 88; RESP 16; TEMP 37.6; O2SAT 94
--- NOTE | 2025-07-02 19:59 | NURSING ---
Report given to EMS transport staff. Telemetry removed and patient hooked to their monitoring system. Q[place]a day shift RN called report to [facility] already.
== END 2025-07-02 19:40 | disposition short-term general hospital (02) | DRG 64 ==
LOC: ED 20:23 → PCU 20:49
PROVIDERS: Admitting Provider Family Medicine; Emergency Provider Emergency Medicine; Visit Provider Internal Medicine
DX: I63.9 Cerebral infarction, unspecified (principal); G03.9 Meningitis, unspecified; E87.1 Hypo-osmolality and hyponatremia; N13.8 Other obstructive and reflux uropathy; N18.30 Chronic kidney disease, stage 3 unspecified; I12.9 Hypertensive chronic kidney disease with stage 1 through stage 4 chronic kidney disease, or unspecified chronic kidney disease; F32.A Depression, unspecified; I48.0 Paroxysmal atrial fibrillation; E87.6 Hypokalemia; E87.8 Other disorders of electrolyte and fluid balance, not elsewhere classified; N40.1 Benign prostatic hyperplasia with lower urinary tract symptoms; Z79.82 Long term (current) use of aspirin; Z79.899 Other long term (current) drug therapy
CPT/HCPCS: 36415; 62328; 70450; 70544; 70553; 71046; 73030; 80053; 80061; 80307; 81001; 82077; 82945; 83036; 83735; 84100; 84145; 84157; 84443; 84484; 85025; 86617; 87070; 87205; 87498; 87529; 87633; 87635; 87899; 88108; 88313; 89050; 89051; 92523; 92610; 93005; 93880; 94668; 94762; 95819; 97162; 97166; 97530; 97535; 99284; A9575; A4216; J0696